=== PATIENT | female | born 1950 | race African-American/Black ===

== ENCOUNTER 2018-05-13 12:11 | Emergency (ER) | payer MEDICARE, OTHER ==
[2018-05-13 12:21] VITALS: RESP 18
[2018-05-13] MEDS ORDERED: DIPH,PERTUS(ACELL)TETVAC-LF 0.5 ML VIAL IM ONE (12:47)
[2018-05-13] MEDS ORDERED: MORPHINE SULFATE 2 MG/ML SYRINGE IVP PRN (12:47)
--- NOTE | 2018-05-13 12:56 | ED ---
Fall HPI - General Chief Complaint: Fall Stated Complaint: Fall Source: patient Mode of arrival: EMS - History of Present Illness Initial Comments: Chief Complaint: 67-year-old [place] female past medical history of hypertension, glaucoma, remote history of pelvic and colon cancer presents after fall. History of Present Illness: She is a 67-year-old -[place]namese female with past medical history of hypertension and glaucoma presents with head pain status post fall. Patient has a history of glaucoma with baseline decreased vision who fell off of a platform. Patient states she has difficulty seeing at baseline. She was walking when she misstepped falling into a ravine. She fell down hit her head on a rock. She states she fell sideways causing her to have an abrasion to the right shoulder and left knee. Patient's past medical history of hypertension. She states she did take her medications this morning. Patient is from [place] and regular cancer care there. She is in town visiting friends and family. Denies any loss of consciousness. Denies any neck pain. Patient was not ambulatory on scene. EMS arrived. They provided her with IV axis and IV analgesia. Patient complains of right head pain. Past Medical History: Pelvic cancer, colon cancer, hypertension, glaucoma Past Surgical History: Colectomy, bilateral total knee replacements Social History: [denies alcohol, tobacco or illicit drug use] Family History: reviewed and noncontributory The ROS documented in this emergency department record has been reviewed and confirmed by me. Those systems with pertinent positive or negative responses have been documented in the HPI. All other systems are other negative and/or noncontributory. - Related Data Previous Rx's Medication Instructions Recorded HYDROcodone/APAP 5-325MG [[place] 1 tab PO Q6HR PRN 3 Days #12 tab 05/13/18 5-325] Allergies Allergy/AdvReac Type Severity Reaction Status Date / Time hydrochlorothiazide Allergy Rash/Hives Verified 05/13/18 12:23 lisinopril Allergy Anaphylaxis Verified 05/13/18 12:23 Penicillins Allergy Rash/Hives Verified 05/13/18 12:23 Review of Systems ROS Statement: Those systems with pertinent positive or pertinent negative responses have been documented in the HPI. ROS Other: All systems not noted in ROS Statement are negative. Past Medical History Past Medical History: Asthma, Hypertension Additional Past Medical History / Comment(s): Cancer -vaginal History of Any Multi-Drug Resistant Organisms: None Reported Past Surgical History: Breast Surgery, Hysterectomy, Orthopedic Surgery Additional Past Surgical History / Comment(s): glacoma, Past Psychological History: Depression Smoking Status: Former smoker Past Alcohol Use History: Occasional Past Drug Use History: Marijuana General Exam - General Exam Comments Initial Comments: Vitals: Vital signs upon arrival shows heart rate of 58, blood pressure 206/94, first vital signs within normal limits PHYSICAL EXAM: General Impression: Alert and oriented x3, acute distress secondary to pain, covered in moderate of her face HEENT: 2 cm laceration over the right superior frontal area, extra-ocular movements intact, pupils equal and reactive to light bilaterally, mucous membranes moist. Cardiovascular: Heart regular rate and rhythm, S1&S2 audible, no murmurs, rubs or gallops Chest: Lungs clear to auscultation bilaterally, no rhonchi, no wheeze, no rales Abdomen: Bowel sounds present, abdomen soft, non-tender, non-distended, no organomegaly, multiple abdominal scars Musculoskeletal: Pulses present and equal in all extremities, no peripheral edema, shoulder or elbow wrist, knee and ankles were all arranged without pain Motor: Power 5/5 bilaterally, no focal deficits noted Neurological: CN II-XII grossly intact, no focal motor or sensory deficits noted Skin: Superficial abrasion to the left knee and right shoulder Psych: Normal affect and mood Course Vital Signs 05/13/18 05/13/18 12:13 13:53 Temperature 98.3 F Pulse Rate 58 L 55 L Respiratory 18 18 Rate Blood Pressure 206/94 191/91 O2 Sat by Pulse 98 98 Oximetry Medical Decision Making - Medical Decision Making EKG interpretation: Ventricular rate 51. Sinus bradycardia rhythm. TX interval 164, Q episcopalian 110, QTc 436. No QT prolongation. No ST or T-wave changes. No old EKG for comparison. Overall this EKG is unremarkable. ED course/medical decision-m[age]-year-old -[place]namese female with past medical history of hypertension, glaucoma and remote history of colon and pelvic cancer presents after fall. Patient at baseline has difficulty seeing due to chronic glaucoma. Patient had a misstep caused her to fall off a ravine causing her to strike her head and contuse her right shoulder and left knee. Vital signs upon arrival shows a markedly elevated blood pressure. Rest of vital signs within normal limits. Physical examination positive for superficial skin abrasions to the right shoulder and left knee. All joints ranged without complications. Patient has a large laceration to the superior frontal area of her head. Tetanus updated. Patient given IV analgesia. Imaging studies and lab evaluation was obtained. Laboratory evaluation obtained showing no acute processes. Computed tomography scan of the head and cervical spine was obtained showing no acute processes. There are incidental findings of 7 mm pulmonary nodule and 2 cm right thyroid nodule. Patient notified of these incidental findings to follow-up with primary care physician upon discharge. Patient is aware of these findings and has known about them for several months they're being monitored by her primary care physician back in [place]. Computed tomography scan of the cervical spine showing degenerative changes. There is mild retrolisthesis of C5 relative to C6 measuring approximately 2-3 mm. There is mention of possible disc herniation centrally C5 to C6. Radiology recommends MRI. Patient not having any neck symptoms. Doubt any acute traumatic injuries of the C-spine. Patient not having any upper or lower extremity neurologic symptoms. Discussed the patient these findings she is told to return should she develop any worsening symptoms especially with the development of neurologic deficits. X-ray of the chest showed no acute processes. X-ray of the pelvis showed isolated issue fracture. Patient ambulating without difficulty. Patient denies any pain to the right issue region. Discussed patient case with orthopedic surgery who recommends weightbearing as tolerated and pain control. Laceration Repair: Preprocedure Verification: x Correct Pt. Proc. Site. x "time out", Verbal confirm Location: Right frontal forehead Length: _ 2 cm xLinear [_] Stellate [_] Beveled [_] Flap Pre Repair CMS: [id number] [_] Except [_] Circulation [_] Motor [_] Sensation Anesthesia: [_x] Lidocaine [_x] 1% [_] 2% _ mL subQ / [_x] Lidocaine c epinephrine [x] 1% [_] 2% 4 mL subQ/ [_] Mercaine [_] 0.25% [_] 0.5% _ mL subQ / [_] Topical: [_] LET [_] TAC // [_] Field [_] Regional [_] Digital _ Preparation: [_] Betadine [_] Chorhexidine [_] Wound Cleanser [_] / Irrigation [ _x] Saline [_] power amt: 300 mL / Done by: [x] EP [_]MERVIN [_]Nurse Exploration: [_]FB(s) [x] None [_] Removed: _ [_] Tendon [_] Nerve [_] Vascular Injury [_] None: _ Repair: [_] Extension [_] Undeming [_] Stent [_] Debride: [_] Skin [_] SQ [_] Muscle [_] Bone [_] FB(s): [_] min [_] mod [_] extensive / [_] Flap production [ _] Bone triming Skin: [_] Dermabond [_] Perla _ # [6-0] Nylon [_] Absorbable [_] Interrupted [ _] Simple [x] Running [_] Mattress Subcutaneous- Mucosa: _ # / _ - 0 [_] Nylon [_] Absorbable [_] Interrupted [_] Running Fascia - Muscle- Tendon: _ #/ _ - 0 [_] Nylon [_] Absorbable [_] Interrupted [_ ] Simple [_] Running Tendon Repair: [_x] N [_] Y // Muscle Repair: [_x] N [_] Y // Splint [_x] N [_] Y _ Post Procedure: Xray: [_] NA [_x] No FB(s) _ Pt Condition: [_] Intact CMS [_] Pain Controlled ( ) _ Referral: PMD _ in _ [3-5] days [_] Admit _ Final impression: 1. Forehead laceration, 2. Right shoulder contusion, 3. Left knee contusion, 4. Right issue chip fracture Plan: Discharge with instructions to return in 3-5 days for suture removal, follow up with primary care physician in [place] for known incidental findings of nodule in the thyroid and lung, and follow-up with orthopedic surgery in [place] for pelvic fracture Disposition: Discharged with instruction to return with any worsening symptoms. - Lab Data Result diagrams: 05/13/18 12:58 05/13/18 12:58 Lab Results 05/13/18 05/13/18 Range/Units 12:58 12:58 WBC 6.1 (3.8-10.6) k/uL RBC 3.57 L (3.80-5.40) m/uL Hgb 10.9 L (11.4-16.0) gm/dL Hct 33.5 L (34.0-46.0) % MCV 93.7 (80.0-100.0) fL MCH 30.6 (25.0-35.0) pg MCHC 32.6 (31.0-37.0) g/dL RDW 13.2 (11.5-15.5) % Plt Count 287 (150-450) k/uL Neutrophils % 82 % Lymphocytes % 8 % Monocytes % 5 % Eosinophils % 3 % Basophils % 1 % Neutrophils # 5.1 (1.3-7.7) k/uL Lymphocytes # 0.5 L (1.0-4.8) k/uL Monocytes # 0.3 (0-1.0) k/uL Eosinophils # 0.2 (0-0.7) k/uL Basophils # 0.0 (0-0.2) k/uL Sodium 141 (137-145) mmol/L Potassium 4.5 (3.5-5.1) mmol/L Chloride 106 (98-107) mmol/L Carbon Dioxide 21 L (22-30) mmol/L Anion Gap 14 mmol/L BUN 35 H (7-17) mg/dL Creatinine 1.50 H (0.52-1.04) mg/dL Est GFR (CKD-EPI)AfAm 41 (>60 ml/min/1.73 sqM) Est GFR (CKD-EPI)NonAf 36 (>60 ml/min/1.73 sqM) Glucose 100 H (74-99) mg/dL Calcium 9.5 (8.4-10.2) mg/dL Disposition Clinical Impression: Fall, Pelvic fracture, Forehead laceration Disposition: HOME SELF-CARE Instructions: Fall Prevention for Older Adults (ED) Additional Instructions: return in 3-5 days for suture removal Prescriptions: HYDROcodone/APAP 5-325MG [[place] 5-325] 1 tab PO Q6HR PRN 3 Days #12 tab PRN Reason: Pain Is patient prescribed a controlled substance at d/c from ED?: Yes When asked, does pt state using other controlled substances?: No Referrals: None,Stated [REFERRING] - 1-2 days Time of Disposition: 15:35
[2018-05-13] MEDS ORDERED: LIDOCAINE 1%/EPI 1:200,000 MPF 10 ML VIAL SQ STA (12:58)
[2018-05-13] MEDS ORDERED: LIDOCAINE 1%-EPI 1:100,000 30 ML VIAL SQ STA (13:06)
[2018-05-13 13:10] LABS: Basophils % (A) 1 %; Eosinophils # (A) 0.2 k/uL (0-0.7); Eosinophils % (A) 3 %; HCT 33.5 % (34.0-46.0); HGB 10.9 gm/dL (11.4-16.0); Lymphocytes # (A) 0.5 k/uL (1.0-4.8); Lymphocytes % (A) 8 %; MCH 30.6 pg (25.0-35.0); MCHC 32.6 g/dL (31.0-37.0); MCV 93.7 fL (80.0-100.0); Mean Platelet Volume 7.1; Monocytes # (A) 0.3 k/uL (0-1.0); Monocytes % (A) 5 %; Neutrophils # (A) 5.1 k/uL (1.3-7.7); Neutrophils % (A) 82 %; Platelet Count 287 k/uL (150-450); RBC 3.57 m/uL (3.80-5.40); RDW 13.2 % (11.5-15.5); WBC 6.1 k/uL (3.8-10.6)
[2018-05-13 13:21] LABS: Calcium 9.5 mg/dL (8.4-10.2); Potassium 4.5 mmol/L (3.5-5.1)
--- NOTE | 2018-05-13 14:03 | CT ---
EXAMINATION TYPE: CT brain adria son DATE OF EXAM: 05/13/2018 COMPARISON: NONE HISTORY: Fall CT DLP: 1329.3 mGycm Automated exposure control for dose reduction was used. TECHNIQUE: CT scan of the head and cervical spine are performed without contrast. FINDINGS: There is no acute intracranial hemorrhage, mass effect, or midline shift identified. Mild -to-moderate generalized degenerative change. Low-attenuation the periventricular white matter is non specific but most typical remote microvascular ischemia. Prominent cisterna magna noted. Changes of chronic sinusitis seen. Calvarium intact. There appears to be soft tissue edema overlying the frontal bone with suggestion of a laceration. Hyperostosis of the calvarium noted. There is retrolisthesis C5 relative to C6 with severe degenerative disc disease with posterior spond ylosis. Probable canal stenosis with uncovertebral joint hypertrophy bilaterally and bilateral facet arthropathy with foraminal encroachment. There is multilevel degenerative disc disease and facet arthropathy with foraminal encroachment. Assessment spinal canal is limited due to noncontrast technique and artifact. If there is concern for canal stenosis or disc herniation correlate with MRI. Within the soft tissues of the neck there is vascular calcifications of the carotid artery There is a large thyroid nodule on the right measuring approximately 2.2 cm. Additional other thyroid nodules are also noted. Suspicion for a central disc herniation at C5-C6. MRI recommended. There is a 7 mm right upper lobe pulmonary nodule. IMPRESSION: 1. There is no acute fracture or dislocation evident in the cervical spine. Is multilevel degenerativ e disc disease and facet arthropathy with multilevel foraminal encroachment. Retrolisthesis of C5 rel ative to C6 measures approximately 2 to 3 mm. Additionally suspicion for a disc herniation centrally C5-C6. Compromise of the Canal the differential diagnosis. Recommend follow-up MRI. 2. No acute intracranial hemorrhage, mass effect, or midline shift is seen. Degenerative and nonspeci fic white matter changes most typical remote microvascular ischemia. 3. Soft tissue edema and laceration along the right frontal bone. 4. 7 mm right upper lobe pulmonary nodule recommend follow-up CT scan the chest on a short-term basis . 5. 2.2 cm right thyroid nodule.
--- NOTE | 2018-05-13 15:06 | XR ---
EXAMINATION TYPE: XR chest 2V DATE OF EXAM: 05/13/2018 COMPARISON: NONE HISTORY: Generalized pain after fall chest pain TECHNIQUE: Frontal and lateral views of the chest are obtained. FINDINGS: There is no heart failure nor confluent pneumonic infiltrate. Thoracic aorta is atheromato us. There is thoracic dextroscoliosis. Costophrenic angles are clear. Bony thorax is intact. Pulmonar y vascularity is normal. IMPRESSION: No active cardiopulmonary disease. Atheromatous aorta. Normal heart.
--- NOTE | 2018-05-13 15:07 | XR ---
EXAMINATION TYPE: XR pelvis AP view DATE OF EXAM: 05/13/2018 COMPARISON: NONE HISTORY: Pain after falling TECHNIQUE: Single view FINDINGS: There is some deformity of the right ischium below the hip joint consistent with a 2 cm x 1 cm chip fracture. The remainder of the pelvic ring is intact. Proximal femurs are intact. Sacroiliac joints appear normal. IMPRESSION: There is evidence of a right ischium large chip fracture.
[2018-05-13 15:33] VITALS: BP 183/96; PULSE 51; TEMP 98.1
== END 2018-05-13 15:43 | disposition home or self-care (01) ==
LOC: EC 12:11
DX: S32.601A Unspecified fracture of right ischium, initial encounter for closed fracture (principal); S01.81XA Laceration without foreign body of other part of head, initial encounter; S40.011A Contusion of right shoulder, initial encounter; S80.02XA Contusion of left knee, initial encounter; Z23 Encounter for immunization; Z85.038 Personal history of other malignant neoplasm of large intestine; Z85.44 Personal history of malignant neoplasm of other female genital organs; Z87.891 Personal history of nicotine dependence; Z88.0 Allergy status to penicillin; Z88.8 Allergy status to other drugs, medicaments and biological substances; W01.198A Fall on same level from slipping, tripping and stumbling with subsequent striking against other object, initial encounter; Y92.89 Other specified places as the place of occurrence of the external cause
CPT/HCPCS: 99285 ×2; 12011 ×2; 96374 ×2; 90471 ×2; 36415; 93005; 80048; 85025; 72170; 71046; 72125; 70450; 90715; J2270